=== PATIENT | female | born 2000 | race Two or more races ===

== ENCOUNTER 2024-05-23 19:41 | Emergency (ER) | payer OTHER ==
[~2024-05-23] VITALS: Ht 172.7 cm; Wt 54.0 kg
[2024-05-23] MEDS ORDERED: 0.9 % SODIUM CHLORIDE 1,000 ML IV ONE (20:30)
[2024-05-23] MEDS ORDERED: ONDANSETRON HCL 2 MG/ML VIAL IV ONE (20:30)
[2024-05-23] MEDS ORDERED: FAMOTIDINE/PF 20 MG/2 ML VIAL IV ONE (20:30)
[2024-05-23] MEDS ORDERED: ONDANSETRON HCL 2 MG/ML VIAL ONE (20:33)
[2024-05-23] MEDS ORDERED: FAMOTIDINE/PF 20 MG/2 ML VIAL ONE (20:34)
[2024-05-23 20:41] LABS: HEMATOCRIT 41.5 % (36.0-45.00); HEMOGLOBIN 14.3 g/dL (12.0-15.00); MEAN CORPUSCULAR HGB CONC 34.4 g/dl (32.0-36.0); PLATELET COUNT 279 K/uL (150-450); RED BLOOD COUNT 4.47 M/uL (4.00-6.00); RED CELL DISTRIBUTION WIDTH 12.5 % (11.5-14.5)
[2024-05-23 21:07] LABS: PH,URINE 6.5 (5.0-8.0); URINE APPEARANCE Clear; URINE BILIRRUBIN Negative (NEGATIVE); URINE BLOOD Negative; URINE COLOR Yellow; URINE GLUCOSE Negative (NEGATIVE); URINE LEUKOCYTE Small; URINE NITRATE Negative; URINE PROTEIN Trace (NEGATIVE)
[2024-05-23 21:10] LABS: URINE BACTERIA 1995.7 uL (0.0-1933); URINE EPITHELIAL CELLS 53.7 uL (0.0-38.8); URINE RBC 6.7 uL (0.0-20.8); URINE WBC 126.6 uL (0.0-23.2)
[2024-05-23 21:32] LABS: URINE KETONE 80 (NEGATIVE)
[2024-05-23 21:39] LABS: ALBUMIN 4.5 gm/dL (3.4-5.0); BILIRUBIN TOTAL 2.42 mg/dL (0.3-1.2); CALCIUM 9.2 mg/dL (8.5-10.1); CREATININE SERUM 0.78 mg/dL (0.55-1.02); GFR 90.73; GLOBULINA 3.2 G/DL (2.4-3.5); POTASSIUM 3.73 mEq/L (3.5-5.1); TOTAL PROTEIN 7.7 gm/dL (6.4-8.2)
[2024-05-23] MEDS ORDERED: MACRODANTIN100 M1 PO (22:10)
[2024-05-23] MEDS ORDERED: ONDANSETRON HCL4 MG PO (22:11)
[2024-05-23] MEDS ORDERED: PEPCID AC20 MG PO (22:11)
== END 2024-05-23 22:35 ==
LOC: ER 19:42
PROVIDERS: Nurse Practitioner Family
DX: N39.0 Urinary tract infection, site not specified (principal); K29.70 Gastritis, unspecified, without bleeding; Z88.8 Allergy status to other drugs, medicaments and biological substances; Z20.822 Contact with and (suspected) exposure to COVID-19
CPT/HCPCS: 36415; 96365; 99282; J2405; J3490; J7030